=== PATIENT | female | born 1960 | race Caucasian/White ===

== ENCOUNTER 2016-09-05 16:46 | Emergency (ER) | payer BC, OTHER ==
--- NOTE | 2016-09-05 18:53 | ED ---
Abdominal Pain HPI - General Chief Complaint: Abdominal Pain Stated Complaint: KIDNEY STONE Time Seen by Provider: 09/05/16 18:40 Source: patient, RN notes reviewed Mode of arrival: ambulatory Limitations: no limitations - History of Present Illness Initial Comments: 55-year-old female presents emergency Department with chief complaint of left flank pain. Patient states she's been having some urinary issues since May and she's been seen her primary care physician for this. They did schedule CAT scan to rule out any kidney stone or any other concerns. Patient states over the last 2440 hrs. she's had severe left flank pain states that she feels like she has a kidney stone which she's had in the past. Patient had some nausea no vomiting no diarrhea constipation. Denies any fevers or chills. Patient had a prior cholecystectomy and novosure procedure. Patient states she does have some dysuria and urinary frequency. Patient denies any chest pain or shortness of breath. Patient states pain radiates from the left flank, back region to her left lower quadrant. - Related Data Home Medications Medication Instructions Recorded Confirmed Albuterol Inhaler [Ventolin Hfa 1 - 2 puff INHALATION RT-Q6H PRN 09/05/16 Inhaler] Atenolol [Tenormin] 50 mg PO BID 09/05/16 09/05/16 Cholecalciferol [Vitamin D3] 1,000 unit PO MOTUWETHFRSA 09/05/16 09/05/16 Docusate [Colace] 100 mg PO HS 09/05/16 09/05/16 Ergocalciferol [Vitamin D2] 50,000 unit PO HADLEY 09/05/16 09/05/16 Fluticasone/Salmeterol [Advair 1 puff INHALATION RT-BID PRN 09/05/16 09/05/16 250-50 Diskus] Gabapentin [Neurontin] 400 mg PO TID 09/05/16 09/05/16 Previous Rx's Medication Instructions Recorded Hydrocodone/Acetaminophen [[place] 1 tab PO Q6HR PRN #15 tab 09/05/16 5-325] Ondansetron Odt [Zofran Odt] 4 mg PO Q8HR PRN #10 tab 09/05/16 Allergies Allergy/AdvReac Type Severity Reaction Status Date / Time Sulfa (Sulfonamide Allergy Rash/Hives Verified 09/05/16 18:48 Antibiotics) Review of Systems ROS Statement: Those systems with pertinent positive or pertinent negative responses have been documented in the HPI. ROS Other: All systems not noted in ROS Statement are negative. Past Medical History Past Medical History: Asthma, Hypertension History of Any Multi-Drug Resistant Organisms: None Reported Past Surgical History: Bariatric Surgery, Cholecystectomy, Orthopedic Surgery Additional Past Surgical History / Comment(s): ACLU removal, kidney stones, right rotator cuff Past Psychological History: No Psychological Hx Reported Smoking Status: Never smoker Past Alcohol Use History: Occasional Past Drug Use History: None Reported General Exam Limitations: no limitations General appearance: alert, in no apparent distress Head exam: Present: atraumatic, normocephalic, normal inspection Respiratory exam: Present: normal lung sounds bilaterally. Absent: respiratory distress, wheezes, rales, rhonchi, stridor Cardiovascular Exam: Present: regular rate, normal rhythm, normal heart sounds. Absent: systolic murmur, diastolic murmur, rubs, gallop, clicks GI/Abdominal exam: Present: soft, normal bowel sounds. Absent: distended, tenderness, guarding, rebound, rigid Back exam: Absent: CVA tenderness (R), CVA tenderness (L) Neurological exam: Present: alert, oriented X3, CN II-XII intact Skin exam: Present: warm, dry, intact, normal color. Absent: rash Course Vital Signs 09/05/16 09/05/16 16:54 18:58 Temperature 97.3 F L Pulse Rate 60 65 Respiratory 17 14 Rate Blood Pressure 205/101 203/79 O2 Sat by Pulse 96 96 Oximetry Medical Decision Making - Medical Decision Making 55-year-old female presented emergency Department chief complaint left flank pain. Patient's pain resolved after urinating in emergency department. Patient states she is completely symptom-free. I did offer the patient urinalysis, CT as she was scheduled for this outpatient. This was completed which showed no acute abnormality on CT no-year-old stone. Patient has clearing of all colitis. Patient analysis does not show any evidence of infection or hematuria though the stone may have passed prior. Return parameters were discussed patient agrees to plan of being discharged follow-up. - Lab Data Lab Results 09/05/16 Range/Units 18:45 Urine Color Light Yellow Urine Appearance Clear (Clear) Urine pH 6.0 (5.0-8.0) Ur Specific [place] 1.003 (1.001-1.035) Urine Protein Negative (Negative) Urine Glucose (UA) Negative (Negative) Urine Ketones Negative (Negative) Urine Blood Negative (Negative) Urine Nitrite Negative (Negative) Urine Bilirubin Negative (Negative) Urine Urobilinogen <2.0 (<2.0) mg/dL Ur Leukocyte Esterase Trace H (Negative) Urine WBC 3 (0-5) /hpf Ur Squamous Epith Cells <1 (0-4) /hpf Urine Bacteria Occasional H (None) /hpf Disposition Clinical Impression: Left flank pain Disposition: HOME SELF-CARE Condition: Stable Instructions: Flank Pain (ED) Additional Instructions: Please return to the Emergency Department if symptoms worsen or any other concerns. Prescriptions: Hydrocodone/Acetaminophen [[place] 5-325] 1 tab PO Q6HR PRN #15 tab PRN Reason: Pain Ondansetron Odt [Zofran Odt] 4 mg PO Q8HR PRN #10 tab PRN Reason: Nausea Time of Disposition: 19:31
[2016-09-05 19:04] LABS: Appearance,Urine Clear (Clear); Bacteria,Urine Occasional /hpf; Bilirubin,Urine Negative (Negative); Glucose,Urine (UA) Negative (Negative); Ketones,Urine Negative (Negative); Leukocyte Esterase,Urine Trace (Negative); Nitrite,Urine Negative (Negative); Particle Count 1362; Protein,Urine Negative (Negative); Specific Gravity,Urine 1.003 (1.001-1.035); Squamous Epithelial Cell,Urine <1 /hpf (0-4); UA Billing (MACRO vs. MICRO) MICRO; Urobilinogen,Urine <2.0 mg/dL (<2.0); WBC,Urine 3 /hpf (0-5)
[2016-09-05] MEDS ORDERED: cloNIDine HCL 0.1 MG TAB PO STA (19:05)
--- NOTE | 2016-09-05 19:07 | CT ---
EXAMINATION TYPE: CT abdomen pelvis wo con DATE OF EXAM: 09/05/2016 6:59 PM COMPARISON: 01/17/2012 HISTORY: Left flank pain. CT DLP: 1302.40 mGycm Automated exposure control for dose reduction was used. TECHNIQUE: Helical acquisition of images was performed from the lung bases through the pelvis. FINDINGS: Lung bases are clear. There is no pleural effusion. Liver spleen pancreas appear normal. Bile ducts are not dilated. There are clips from cholecystectomy . There is no adrenal mass. Kidneys have normal size and contour. There is no hydronephrosis. There i s no retroperitoneal adenopathy. There is no ascites. Bladder distends smoothly. I see no intestinal wall thickening. There are no dilated loops. Appendix appears normal. There are some sigmoid divertic eugene. I see no sign of diverticulitis. I see no bony destructive process. IMPRESSION: THERE IS SIGMOID DIVERTICULOSIS WITHOUT SIGN OF DIVERTICULITIS. THERE IS CLEARING OF THE INFLAMMATORY CHANGES IN THE DISTAL DESCENDING COLON COMPARED TO OLD EXAM. NORMAL APPENDIX.
[2016-09-05 19:51] VITALS: BP 173/79; PULSE 64; RESP 18; TEMP 97.8
== END 2016-09-05 19:51 | disposition home or self-care (01) ==
LOC: EC 16:46
DX: R10.32 Left lower quadrant pain (principal); R11.0 Nausea; R30.0 Dysuria; R35.0 Frequency of micturition; K57.30 Diverticulosis of large intestine without perforation or abscess without bleeding; I10 Essential (primary) hypertension; Z87.442 Personal history of urinary calculi; Z90.49 Acquired absence of other specified parts of digestive tract; Z98.84 Bariatric surgery status; Z88.2 Allergy status to sulfonamides; Z79.899 Other long term (current) drug therapy
CPT/HCPCS: 74176; 81001; 87086; 99284

== ENCOUNTER → 2019-08-17 | Outpatient (CLI) | payer BC ==
--- NOTE | 2019-08-18 07:33 | US ---
EXAMINATION TYPE: US kidneys/renal and bladder DATE OF EXAM: 08/17/2019 COMPARISON: NONE CLINICAL HISTORY: R31.9 Hematuria. EXAM MEASUREMENTS: Right Kidney: 11.7 x 4.4 x 4.6 cm Left Kidney: 11.8 x 4.8 x 4.6 cm Right Kidney: no hydronephrosis, echogenic foci, possible stone measuring 0.4 x 0.2 x 0.4cm Left Kidney: no hydronephrosis, echogenic foci, possible stone measuring 0.3 x 0.3 x 0.3cm Bladder: wnl There is no evidence for hydronephrosis at this point in time. No nephrolithiasis is seen. No olegario s are identified. The urinary bladder is anechoic. Bilateral ureteral jets are seen. IMPRESSION: Bilateral subcentimeter nonobstructing renal calculi. No hydronephrosis of either kidney.
== END | disposition home or self-care (01) ==
LOC: RADUSMAIN 15:43
PROVIDERS: ATTEND Family Medicine
DX: N20.0 Calculus of kidney (principal)
CPT/HCPCS: 76770

== ENCOUNTER → 2020-08-25 | Outpatient (CLI) | payer BC ==
--- NOTE | 2020-08-25 22:40 | CT ---
EXAMINATION TYPE: CT abdomen pelvis wo/w con DATE OF EXAM: 08/25/2020 HISTORY: LLQ pain/ burning. hx renal stones. CT DLP: 3080mGycm Automated Exposure Control for Dose Reduction was Utilized. CONTRAST: CT scan of the abdomen and pelvis is performed with oral and without and with IV Contrast, patient in jected with 100 mL of Isovue 300. COMPARISON: CT abdomen and pelvis September 05, 2016 FINDINGS: LUNG BASES: No significant abnormality is appreciated. LIVER/GB: Cholecystectomy clips are redemonstrated. Visualized liver is low density and isodense to s pleen on noncontrast images suggesting mild diffuse fatty infiltration. PANCREAS: No significant abnormality is seen. SPLEEN: No significant abnormality is seen. ADRENALS: No significant abnormality is seen. KIDNEYS: Noncontrast images show 12 mm left renal pelvic calculus axial image 39 series 3. There is s amber 2 mm nonobstructing calculus mid pole level anteriorly right kidney coronal image 58 series 4. Postcontrast images show symmetric cord especially uptake and excretion without hydronephrosis seen b ilaterally. No intraluminal calculus in bladder. BOWEL: Scattered colonic diverticula greatest at level of sigmoid colon. Perhaps mild fat stranding a t level of sigmoid colon left pelvis. Oral contrast reaches level of terminal ileum. No suspicious sm all or large bowel dilatation. No free air. No well-formed fluid collection or abscess seen. UTERUS/ADNEXA: Anteverted uterus. Scattered bilateral pelvic phleboliths. LYMPH NODES: No greater than 1cm abdominal or pelvic lymph nodes are appreciated. OSSEOUS STRUCTURES: Slight grade 1 retrolisthesis L2 on L3 and L3 on L4. Mild disc space narrowing at these levels. OTHER: No significant additional abnormality is seen. IMPRESSION: Mild or early uncomplicated acute diverticulitis proximal to mid sigmoid colon left pelvi s cannot be excluded. Correlate clinically. There is also new 12 mm calculus in left renal pelvis not causing delayed excretion or left-sided hydronephrosis currently.
== END | disposition home or self-care (01) ==
LOC: RADCTMAIN 17:23
PROVIDERS: ATTEND Family Medicine
DX: N20.0 Calculus of kidney (principal)
CPT/HCPCS: 74178; Q9967

== ENCOUNTER → 2020-09-30 | Outpatient (CLI) | payer BC ==
[2020-09-30 14:27] LABS: Basophils # (A) 0.1 k/uL (0-0.2); Basophils % (A) 2 %; Eosinophils # (A) 0.3 k/uL (0-0.7); Eosinophils % (A) 3 %; HCT 44.8 % (34.0-46.0); HGB 15.2 gm/dL (11.4-16.0); Lymphocytes # (A) 3.1 k/uL (1.0-4.8); Lymphocytes % (A) 33 %; MCH 30.4 pg (25.0-35.0); MCV 89.6 fL (80.0-100.0); Mean Platelet Volume 9.4; Monocytes # (A) 0.6 k/uL (0-1.0); Monocytes % (A) 6 %; Neutrophils # (A) 5.1 k/uL (1.3-7.7); Neutrophils % (A) 54 %; Platelet Count 252 k/uL (150-450); RBC 5.01 m/uL (3.80-5.40); RDW 12.2 % (11.5-15.5); WBC 9.5 k/uL (3.8-10.6)
[2020-09-30 14:56] LABS: African American GFR (CKD) >90 (>60 ml/min/1.73 sqM); Anion Gap 8 mmol/L; Blood Urea Nitrogen 11 mg/dL (7-17); Calcium 10.5 mg/dL (8.4-10.2); Carbon Dioxide 27 mmol/L (22-30); Chloride 106 mmol/L (98-107); Glucose 103 mg/dL (74-99); Non-African American GFR(CKD) >90 (>60 ml/min/1.73 sqM); Sodium 141 mmol/L (137-145)
== END | disposition home or self-care (01) ==
LOC: LABPAT 13:10
PROVIDERS: ATTEND Urology
DX: Z01.818 Encounter for other preprocedural examination (principal); N20.0 Calculus of kidney
CPT/HCPCS: 36415; 80048; 85025

== ENCOUNTER 2020-10-07 11:15 | Day surgery (SDC) | payer BC ==
[2020-10-01 17:23] VITALS: BMI 41.5
--- NOTE | 2020-10-06 20:28 | P.GSHP ---
History of Present Illness H&P Date: 10/06/20 Chief Complaint: Left flank pain The patient is a 59-year-old white female with history of urolithiasis. She underwent ESWL in 2008. She now presents with a one-year history of intermittent left flank pain. CT scan shows a 12 mm left renal pelvic calculus, with no evidence of hydronephrosis. A 2 mm right renal calculus was also seen. - Constitutional Constitutional: Reports chills - Gastrointestinal Gastrointestinal: Reports nausea - Genitourinary (Male) Genitourinary: Reports flank pain, Reports kidney stones, Denies hematuria Past Medical History Past Medical History: Asthma, Hypertension Additional Past Medical History / Comment(s): kidney stones History of Any Multi-Drug Resistant Organisms: None Reported Past Surgical History: Cholecystectomy, Orthopedic Surgery, Uterine Ablation Additional Past Surgical History / Comment(s): ACL removal of rt knee, kidney stones, right rotator cuff,novasure uterine ablation Past Anesthesia/Blood Transfusion Reactions: Motion Sickness, Postoperative Nausea & Vomiting (PONV) Smoking Status: Never smoker - Past Family History Mother Family Medical History: No Reported History Sister(s) Family Medical History: Cancer Additional Family Medical History / Comment(s): ovarian CA Father Family Medical History: Cancer Additional Family Medical History / Comment(s): lung Brother(s) Family Medical History: Cancer, Myocardial Infarction ([place]) Additional Family Medical History / Comment(s): bladder Medications and Allergies Home Medications Medication Instructions Recorded Confirmed Type Gabapentin [Neurontin] 400 mg PO HS 09/05/16 10/01/20 History atenoloL [Tenormin] 50 mg PO BID 09/05/16 10/01/20 History Cholecalciferol [Vitamin D3 (25 250 mcg PO DAILY 10/01/20 10/01/20 History Mcg = 1000 Iu)] Ketorolac [Toradol] 10 mg PO Q6HR PRN 10/01/20 10/01/20 History Lisinopril-Hctz 10-12.5 mg 1 tab PO QAM 10/01/20 10/01/20 History [Zestoretic 10-12.5] Simvastatin [Zocor] 20 mg PO HS 10/01/20 10/01/20 History Allergies Allergy/AdvReac Type Severity Reaction Status Date / Time Sulfa (Sulfonamide Allergy Rash/Hives Verified 10/01/20 17:12 Antibiotics) tamsulosin [From Flomax] Allergy severe Verified 10/01/20 17:13 dryness to lips & fellt like there was glass in them Surgical - Exam - General well developed, well nourished, no distress - Neck no masses, trachea midline - Respiratory normal respiratory effort, clear to auscultation - Cardiovascular Rhythm: regular Abnormal Heart Sounds: no systolic murmur, no diastolic murmur, no rub, no S3 Gallop, no S4 Gallop, no click, no other - Abdomen Abdomen: soft, non tender, no guarding, no rigid, no rebound - Psychiatric oriented to time, oriented to person, oriented to place, speech is normal, memory intact Results - Imaging CT scan - abdomen: report reviewed Assessment and Plan (1) Calculus of kidney Status: Acute Code(s): N20.0 - CALCULUS OF KIDNEY SNOMED Code(s): 51183645 Plan: Cystoscopy, left ureteroscopy with Holmium laser lithotripsy, left ureteral stent insertion. The procedure has been reviewed in detail with the patient. Also discussed were alternative treatment options. Risks associated with this procedure include anesthesia, bleeding, infection, and ureteral injury. She is aware of the possible need for secondary treatment.
[~2020-10-07 11:15] MED LIST: DEXAMETHASONE SOD PHOSPHATE 4 MG/ML 1 ML VIAL IV ONE; HYDROmorphone 0.5 MG/0.5 ML SYRINGE IVP PRN; LACTATED RINGERS 1,000 ML IV SCH; MIDAZOLAM 2 MG/2 ML VIAL IV PRN; ONDANSETRON 4 MG/2 ML VIAL IVP ONE; SCOPOLAMINE 1.5MG/72HR PATCH TRANSDERM ONE
[2020-10-07] MEDS ORDERED: LIDOCAINE 1% (10MG/ML) FOR IV START INTRADERMA ONE (12:23)
[2020-10-07 12:28] VITALS: RESP 16
--- NOTE | 2020-10-07 13:12 | XR ---
EXAMINATION TYPE: XR KUB DATE OF EXAM: 10/07/2020 HISTORY: Pain Comparison: None. Single KUB is submitted for interpretation. Findings: Right renal calculi: None Visualized. Right ureteral calculi: None Visualized. Left renal calculi: None Visualized. Left ureteral calculi: 1.0 cm calculus left renal pelvis. Pelvic calcifications: None Visualized. Bowel gas pattern is unremarkable. No free air. No mass effects. IMPRESSION: 1. 1.0 cm calculus left renal pelvis.
[2020-10-07] MEDS ORDERED: fentaNYL (PF) 50 MCG/ML 2 ML AMP ONE (13:15)
[2020-10-07] MEDS ORDERED: PROPOFOL 10 MG/ML 20 ML VIAL IV ONE (13:15)
[2020-10-07] MEDS ORDERED: MIDAZOLAM 2 MG/2 ML VIAL ONE (13:15)
[2020-10-07] MEDS ORDERED: LIDOCAINE 1% INJ 10MG/ML (20 ML MDV) ONE (13:15)
[2020-10-07] MEDS ORDERED: SUCCINYLCHOLINE CHLORIDE 100 MG/5 ML SYR IV ONE (13:15)
[2020-10-07] MEDS ORDERED: ePHEDrine SULFATE/0.9% NACL/PF 50 MG/5 ML SYRINGE IV ONE (13:15)
[2020-10-07 14:53] VITALS: TEMP 97.8
--- NOTE | 2020-10-07 15:01 | FL ---
Fluoroscopy INDICATION: Pain FINDINGS: Fluoroscopy time: 14 seconds. Images obtained: 1. IMPRESSIONS: 1. Documentation of fluoroscopy.
--- NOTE | 2020-10-07 15:13 | P.OP ---
Date of Procedure: 10/07/20 Preoperative Diagnosis: Left renal calculus Postoperative Diagnosis: Same Procedure(s) Performed: Cystoscopy, left ureteroscopy with Holmium laser lithotripsy, left ureteral stent insertion Anesthesia: GETA Surgeon: Raad Ibarra Estimated Blood Loss (ml): 5 IV fluids (ml): 700 Pathology: none sent Condition: stable Disposition: PACU Indications for Procedure: The patient is a 59-year-old white female with history of urolithiasis. She underwent ESWL in 2008. She now presents with a one-year history of intermittent left flank pain. CT scan shows a 12 mm left renal pelvic calculus, with no evidence of hydronephrosis. A 2 mm right renal calculus was also seen. Operative Findings: 12 mm left renal pelvic calculus, fragmented completely. Description of Procedure: The patient was taken to the operating room and placed in the dorsolithotomy position, with legs supported in Fransisco stirrups. The external genitalia was prepped and draped sterilely. The 30 lens was used to introduce the 21-Swiss Mendoza cystoscopic sheath through the urethra and into the bladder under direct vision. The bladder was examined in its entirety. Both ureteral orifices were normal anatomic location and configuration, and clear urine effluxed from both. No tumors or foreign bodies were seen. A 0.038 inch Glidewire was passed through the cystoscope. The left ureteral orifice was cannulated, and the G lidewire was advanced up to the renal pelvis. The cystoscope was removed, and an 11/13-Swiss ureteral access catheter was passed over the wire, up to the proximal ureter. The flexible ureteroscope was then passed through the ureteral access catheter sheath, up to the stone. The 272 micron Holmium laser probe was passed through the ureteroscope, and lithotripsy was performed using a dusting method. This was continued until the calculus was fragmented completely. The ureteroscope was removed. The Glidewire was passed through the ureteral access catheter sheath, which was removed. The Glidewire was backloaded into the cystoscope, which was passed into the bladder. A 24 cm, 4.8-Swiss double-J ureteral stent was placed over the wire. Proper stent positioning was verified fluoroscopically and endoscopically. The bladder was emptied and the cystoscope removed. The patient tolerated the procedure well and was taken to the recovery room in stable condition.
[2020-10-07] MEDS ORDERED: HYDROcodone/APAP 7.5-325MG 1 EACH TAB ONE (16:14)
[2020-10-07] MEDS ORDERED: HYDROcodone/APAP 7.5-325MG 1 EACH TAB PO ONE (16:18)
[2020-10-07 16:39] VITALS: BP 160/87; PULSE 81
== END 2020-10-07 17:27 | disposition home or self-care (01) ==
LOC: OR 11:15
PROVIDERS: ATTEND Urology
DX: N20.0 Calculus of kidney (principal); I10 Essential (primary) hypertension; J45.909 Unspecified asthma, uncomplicated; Z87.442 Personal history of urinary calculi; Z90.49 Acquired absence of other specified parts of digestive tract; Z98.890 Other specified postprocedural states; Z80.41 Family history of malignant neoplasm of ovary; Z80.1 Family history of malignant neoplasm of trachea, bronchus and lung; Z82.49 Family history of ischemic heart disease and other diseases of the circulatory system; Z80.52 Family history of malignant neoplasm of bladder; Z79.899 Other long term (current) drug therapy; Z88.2 Allergy status to sulfonamides; Z88.8 Allergy status to other drugs, medicaments and biological substances
CPT/HCPCS: 74018; 52356; J1100; J0690; J2405; J1170

== ENCOUNTER 2020-10-07 22:53 | Emergency (ER) | payer BC ==
[2020-10-07 23:08] VITALS: PULSE 88; RESP 18; TEMP 98
--- NOTE | 2020-10-07 23:33 | ED ---
Abdominal Pain HPI - General Chief Complaint: Abdominal Pain Stated Complaint: Abd Pain Time Seen by Provider: 10/07/20 23:02 Source: patient, EMS Mode of arrival: EMS Limitations: no limitations - History of Present Illness Initial Comments: 59-year-old female presents to emergency Department with a chief complaint of flank pain. Patient reports she was diagnosed with a left-sided renal colic less measuring approximately 12 mm. States performed a lithotripsy and placed a stent earlier today. Patient reports she was discharged around 5 P M and given 1 dose of [place] prior to discharge. Patient reports she has been taking Tylenol and Motrin for the pain with no significant improvement in pain. Patient reports her pain was very acute and she began to vomit due to. She also reports having gross hematuria. Reports her left side is Tender. Denies any fevers or chills. Denies any diarrhea. - Related Data Home Medications Medication Instructions Recorded Confirmed Gabapentin [Neurontin] 400 mg PO HS 09/05/16 10/01/20 atenoloL [Tenormin] 50 mg PO BID 09/05/16 10/01/20 Cholecalciferol [Vitamin D3 (25 250 mcg PO DAILY 10/01/20 10/01/20 Mcg = 1000 Iu)] Lisinopril-Hctz 10-12.5 mg 1 tab PO QAM 10/01/20 10/01/20 [Zestoretic 10-12.5] Simvastatin [Zocor] 20 mg PO HS 10/01/20 10/01/20 Previous Rx's Medication Instructions Recorded HYDROcodone/APAP 5-325MG [[place] 1 tab PO Q6HR PRN 3 Days #12 tab 10/08/20 5-325] Allergies Allergy/AdvReac Type Severity Reaction Status Date / Time ketorolac [From Toradol] Allergy Nausea Verified 10/07/20 12:30 Sulfa (Sulfonamide Allergy Rash/Hives Verified 10/07/20 12:09 Antibiotics) tamsulosin [From Flomax] Allergy severe Verified 10/07/20 12:09 dryness to lips & fellt like there was glass in them Review of Systems ROS Statement: Those systems with pertinent positive or pertinent negative responses have been documented in the HPI. ROS Other: All systems not noted in ROS Statement are negative. Past Medical History Past Medical History: Asthma, Hypertension History of Any Multi-Drug Resistant Organisms: None Reported Past Surgical History: Bariatric Surgery, Cholecystectomy, Orthopedic Surgery Additional Past Surgical History / Comment(s): ACLU removal, kidney stones, right rotator cuff Past Psychological History: No Psychological Hx Reported Smoking Status: Never smoker Past Alcohol Use History: Occasional Past Drug Use History: None Reported General Exam Limitations: no limitations General appearance: alert, in no apparent distress Head exam: Present: atraumatic, normocephalic, normal inspection Eye exam: Present: normal appearance, PERRL, EOMI Pupils: Present: normal accommodation ENT exam: Present: normal exam, normal oropharynx, mucous membranes moist, TM's normal bilaterally, normal external ear exam Neck exam: Present: normal inspection, full ROM. Absent: tenderness Respiratory exam: Present: normal lung sounds bilaterally. Absent: respiratory distress, wheezes, rales, rhonchi, stridor Cardiovascular Exam: Present: regular rate, normal rhythm, normal heart sounds. Absent: systolic murmur GI/Abdominal exam: Present: soft, tenderness (Left flank). Absent: distended, guarding, rebound, rigid Extremities exam: Present: normal inspection, full ROM, normal capillary refill. Absent: tenderness, joint swelling Back exam: Present: normal inspection, full ROM, CVA tenderness (L). Absent: tenderness, CVA tenderness (R) Neurological exam: Present: alert, oriented X3 Psychiatric exam: Present: normal affect, normal mood Skin exam: Present: warm, dry, intact, normal color Course Vital Signs 10/07/20 23:06 Temperature 98 F Pulse Rate 88 Respiratory 18 Rate Blood Pressure 162/71 O2 Sat by Pulse 93 L Oximetry Medical Decision Making - Medical Decision Making 59-year-old female presents to emergency Department with chief complaint of flank pain. Medical records reviewed and indicates the patient underwent lithotripsy earlier today with stenting on the left side. She has left flank and left CVA tenderness. CBC showing 14.2 leukocytosis likely secondary to the vomiting episodes. Renal function is within normal limits. UA shows hematuria with 32 white blood cells. Leukocyte esterase. No nitrates. Urine culture pending. CT of abdomen and pelvis without contrast reveals mild left-sided hydronephrosis with a urethral stent. There is stone debris within the left renal pelvis. There is also lower pole calluses measuring up to 7.5 mm in diameter. Patient was given analgesia in the ambulance. I gave her a [place] prior to discharge. I also will discharge her with 3 days of [place] and Zofran. Opioid form discussed and signed. Patient will follow up with Dr. Ibarra in the morning. Strict return parameters were thoroughly discussed patient was oozing agreeable. Case discussed with Dr. Kennedy - Lab Data Result diagrams: 10/07/20 23:44 10/07/20 23:44 Lab Results 10/07/20 10/07/20 10/07/20 Range/Units 23:44 23:44 23:44 WBC 14.2 H (3.8-10.6) k/uL RBC 4.70 (3.80-5.40) m/uL Hgb 14.5 (11.4-16.0) gm/dL Hct 41.3 (34.0-46.0) % MCV 87.9 (80.0-100.0) fL MCH 30.8 (25.0-35.0) pg MCHC 35.1 (31.0-37.0) g/dL RDW 12.3 (11.5-15.5) % Plt Count 164 (150-450) k/uL MPV 10.2 Neutrophils % 86 % Lymphocytes % 7 % Monocytes % 4 % Eosinophils % 2 % Basophils % 0 % Neutrophils # 12.3 H (1.3-7.7) k/uL Lymphocytes # 1.0 (1.0-4.8) k/uL Monocytes # 0.6 (0-1.0) k/uL Eosinophils # 0.3 (0-0.7) k/uL Basophils # 0.0 (0-0.2) k/uL Sodium 134 L (137-145) mmol/L Potassium 4.4 (3.5-5.1) mmol/L Chloride 104 (98-107) mmol/L Carbon Dioxide 20 L (22-30) mmol/L Anion Gap 10 mmol/L BUN 10 (7-17) mg/dL Creatinine 0.62 (0.52-1.04) mg/dL Est GFR (CKD-EPI)AfAm >90 (>60 ml/min/1.73 sqM) Est GFR (CKD-EPI)NonAf >90 (>60 ml/min/1.73 sqM) Glucose 131 H (74-99) mg/dL Calcium 9.9 (8.4-10.2) mg/dL Total Bilirubin 0.6 (0.2-1.3) mg/dL AST 47 H (14-36) U/L ALT 46 H (4-34) U/L Alkaline Phosphatase 72 (38-126) U/L Total Protein 7.1 (6.3-8.2) g/dL Albumin 4.1 (3.5-5.0) g/dL Urine Color Light Red Urine Appearance Cloudy H (Clear) Urine pH 7.0 (5.0-8.0) Ur Specific [place] 1.021 (1.001-1.035) Urine Protein 2+ H (Negative) Urine Glucose (UA) Negative (Negative) Urine Ketones Trace H (Negative) Urine Blood Large H (Negative) Urine Nitrite Negative (Negative) Urine Bilirubin Negative (Negative) Urine Urobilinogen <2.0 (<2.0) mg/dL Ur Leukocyte Esterase Small H (Negative) Urine RBC >182 H (0-5) /hpf Urine WBC 32 H (0-5) /hpf Hyaline Casts 8 H (0-2) /lpf Urine Mucus Occasional H (None) /hpf Disposition Clinical Impression: Left flank pain, Nausea & vomiting Disposition: HOME SELF-CARE Condition: Stable Instructions (If sedation given, give patient instructions): Abdominal Pain (ED) Additional Instructions: Follow-up with urology. Return to emergency department if symptoms worsen. Prescriptions: HYDROcodone/APAP 5-325MG [[place] 5-325] 1 tab PO Q6HR PRN 3 Days #12 tab PRN Reason: Pain Is patient prescribed a controlled substance at d/c from ED?: Yes If prescribed controlled substance>3 days was MAPS reviewed?: Prescribed <3 Days Referrals: Vin Fontenot MD [Primary Care Provider] - 1-2 days Time of Disposition: 01:16
[2020-10-08 00:01] LABS: Basophils % (A) 0 %; Eosinophils # (A) 0.3 k/uL (0-0.7); Eosinophils % (A) 2 %; HCT 41.3 % (34.0-46.0); HGB 14.5 gm/dL (11.4-16.0); Lymphocytes % (A) 7 %; MCH 30.8 pg (25.0-35.0); MCHC 35.1 g/dL (31.0-37.0); MCV 87.9 fL (80.0-100.0); Mean Platelet Volume 10.2; Monocytes # (A) 0.6 k/uL (0-1.0); Monocytes % (A) 4 %; Neutrophils # (A) 12.3 k/uL (1.3-7.7); Neutrophils % (A) 86 %; Platelet Count 164 k/uL (150-450); RDW 12.3 % (11.5-15.5); WBC 14.2 k/uL (3.8-10.6)
[2020-10-08 00:10] LABS: ALT 46 U/L (4-34); AST 47 U/L (14-36); African American GFR (CKD) >90 (>60 ml/min/1.73 sqM); Albumin 4.1 g/dL (3.5-5.0); Alkaline Phosphatase 72 U/L (38-126); Anion Gap 10 mmol/L; Blood Urea Nitrogen 10 mg/dL (7-17); Calcium 9.9 mg/dL (8.4-10.2); Carbon Dioxide 20 mmol/L (22-30); Chloride 104 mmol/L (98-107); Glucose 131 mg/dL (74-99); Non-African American GFR(CKD) >90 (>60 ml/min/1.73 sqM); Potassium 4.4 mmol/L (3.5-5.1); Sodium 134 mmol/L (137-145); Total Bilirubin 0.6 mg/dL (0.2-1.3); Total Protein 7.1 g/dL (6.3-8.2)
[2020-10-08 00:30] LABS: Appearance,Urine Cloudy (Clear); Bilirubin,Urine Negative (Negative); Blood,Urine Large (Negative); Color,Urine Light Red; Glucose,Urine (UA) Negative (Negative); Hyaline Casts,Urine 8 /lpf (0-2); Ketones,Urine Trace (Negative); Leukocyte Esterase,Urine Small (Negative); Mucus,Urine Occasional /hpf; Nitrite,Urine Negative (Negative); Protein,Urine 2+ (Negative); RBC,Urine >182 /hpf (0-5); Specific Gravity,Urine 1.021 (1.001-1.035); Urobilinogen,Urine <2.0 mg/dL (<2.0); WBC,Urine 32 /hpf (0-5)
--- NOTE | 2020-10-08 01:05 | CT ---
EXAM: CT Abdomen and Pelvis Without Intravenous Contrast CLINICAL HISTORY: ITS.REASON CT Reason: left flank pain, 12 hrs post op lithotripsy TECHNIQUE: Axial computed tomography images of the abdomen and pelvis without intravenous contrast. CTDI is 26.57 mGy and DLP is 1554.4 mGy-cm. This CT exam was performed using one or more of the following dose reduction techniques: automated exposure control, adjustment of the mA and/or kV according to patient size, and/or use of iterative reconstruction technique. COMPARISON: August 25, 2020 FINDINGS: Lung bases: Mild bibasilar subsegmental atelectasis is present. ABDOMEN: Liver: There is fatty infiltration of the liver and hepatomegaly with the liver measuring 23 cm craniocaudad. Gallbladder and bile ducts: Previous cholecystectomy. No biliary duct dilation is seen. Pancreas: Unremarkable. No ductal dilation. Spleen: Unremarkable. No splenomegaly. Adrenals: Unremarkable. No mass. Kidneys and ureters: There is mild left-sided hydronephrosis. There is a double-J ureteral stent in standard position. There is stone debris within the left renal pelvis and dependent portion of the mid and lower pole calyces measuring up to 7.5 mm in diameter. Nonobstructive 3 mm calyceal calculus in the lower pole the right kidney. Stomach and bowel: There is moderate diverticulosis of the left and sigmoid colon without signs of acute diverticulitis. Bowel loops are nondilated. No acute inflammatory changes are seen involving the bowel. PELVIS: Appendix: The appendix is normal. Bladder: Unremarkable. No stones. Reproductive: Unremarkable as visualized. ABDOMEN and PELVIS: Intraperitoneal space: Unremarkable. No free air. No significant fluid collection. Bones/joints: Mild to moderate degenerative changes are present in the lumbar spine. No acute fracture or subluxation is seen. Soft tissues: Unremarkable. Vasculature: Unremarkable. No abdominal aortic aneurysm. Lymph nodes: Unremarkable. No enlarged lymph nodes. IMPRESSION: 1. There is mild left-sided hydronephrosis. There is a double-J ureteral stent in standard position. There is stone debris within the left renal pelvis and dependent portion of the mid and lower pole calyces measuring up to 7.5 mm in diameter. 2. There is fatty infiltration of the liver and hepatomegaly with the liver measuring 23 cm craniocaudad. 3. Diverticulosis of the sigmoid colon. The appendix is normal. No acute inflammatory changes are seen involving the bowel.
[2020-10-08] MEDS ORDERED: HYDROcodone/APAP 10-325MG 1 EACH TAB PO ONE (01:22)
[2020-10-08 01:32] VITALS: BP 164/70
== END 2020-10-08 01:34 | disposition home or self-care (01) ==
LOC: EC 22:53
DX: R10.9 Unspecified abdominal pain (principal); R11.2 Nausea with vomiting, unspecified; J45.909 Unspecified asthma, uncomplicated; Z90.49 Acquired absence of other specified parts of digestive tract; Z87.442 Personal history of urinary calculi
CPT/HCPCS: 36415; 74176; 80053; 81001; 85025; 87086; 99284